=== PATIENT | female | born 1955 | race Caucasian/White ===

== ENCOUNTER 2021-05-14 12:35 | Emergency (ER) | payer OTHER, SELFPAY ==
--- NOTE | ~2021-05-14 | XR_ITS ---
EXAMINATION: XR chest 1V portable EXAM DATE: 05/14/2021 22:45 INDICATION: Shortness of breath. TECHNIQUE: Portable AP frontal chest x-ray was obtained. Comparison is made to prior examination from 09/06/2013. FINDINGS: There is moderate amount of ill-defined bilateral pneumonia or edema. No pneumothorax or pl eural effusion. Cardiomediastinal silhouette is normal. There are cholecystectomy clips. There are no osseous abnormalities identified. IMPRESSION: Moderate amount of bilateral pneumonia or edema. Reviewed, dictated and finalized at location A. 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
--- NOTE | 2021-05-14 12:41 | PC.NURSE ---
o2 sat checked at intake desk. 93%
[2021-05-14 13:39] VITALS: BP 147/69; PULSE 76; RESP 16; TEMP 36.6; O2SAT 95
[2021-05-14 19:09] VITALS: BP 123/64; PULSE 72; TEMP 36.3; O2SAT 94
[2021-05-14 22:20] VITALS: BP 131/68; PULSE 98; O2SAT 93
--- NOTE | 2021-05-14 22:40 | PC.NURSE ---
XY to room at this time.
[2021-05-14 23:25] LABS: Basophils Absolute Auto 0.1 K/mm3 (0.0-0.1); Basophils Percent Auto 0.8 % (0.2-1.2); Eosinophils Absolute Auto 0.7 K/mm3 (0-0.3); Eosinophils Percent Auto 5.8 % (0-4.4); Hematocrit 40.2 % (37.0-47.0); Hemoglobin 13.1 g/dL (12.0-15.0); Immature Granulocyte Absolute 0.05 K/mm3 (0.00-0.031); Immature Granulocyte Percent A 0.4 % (0-0.5); Lymphocytes Absolute Auto 1.28 K/mm3 (0.9-3.2); Mean Corpuscular HGB Conc 32.6 g/dl (32-36); Mean Corpuscular Hemoglobin 29.8 pg (26-34); Mean Corpuscular Volume 91.6 fl (80-100); Mean Platelet Volume 8.7 fl (7.4-10.4); Monocytes Absolute Auto 1.2 K/mm3 (0.1-0.6); Monocytes Percent Auto 10.2 % (2.6-8.5); Neutrophils Absolute Auto 8.4 K/mm3 (1.3-6.7); Neutrophils Percent Auto 71.8 % (45.5-73.1); Platelet Count Result 331 k/mm3 (150-375); Red Blood Count 4.39 M/mm3 (4.2-5.4); Red Cell Distribution Width 13.5 % (11.5-14.5); White Blood Count 11.6 K/mm3 (4.5-10.0)
[2021-05-14 23:35] LABS: Alanine Aminotransferase 25 U/L (4-35); Albumin Level 3.2 g/dL (3.5-5.1); Alkaline Phosphatase 73 U/L (38-126); Anion Gap 7 mmol/L (8-16); Aspartate Amino Transferase 36 U/L (14-36); Bilirubin,Total 0.8 mg/dL (0.2-1.3); Blood Urea Nitrogen 10 mg/dL (7-17); Calcium 8.4 mg/dL (8.4-10.2); Carbon Dioxide 23 mmol/L (22-30); Chloride 103 mmol/L (98-107); Estimated CRCL calculation 69 ml/min; Estimated Glomerular Filt Rate > 60; Glucose 110 mg/dL (65-110); Potassium 3.9 mmol/L (3.4-5.0); Sodium 133 mmol/L (137-145)
[2021-05-14 23:44] LABS: NT Pro B Type Natriuretic Pept 343 pg/mL (5-100)
[2021-05-14 23:53] VITALS: BP 116/66; PULSE 81; RESP 16; O2SAT 96
--- NOTE | 2021-05-14 23:58 | ED.GENADULT ---
HPI - General Adult General Chief complaint: Recheck/Abnormal Lab/Rx Stated complaint: low o2 sat Time Seen by Provider: 05/14/21 22:30 Source: patient Mode of arrival: ambulatory Limitations: no limitations History of Present Illness HPI narrative: 66-year-old with a history of hypertension diagnosed with Covid in February 2021 here with complaints of low SPO2 at the doctor's office this morning. Patient states that she went for follow-up regarding her chronic cough which she has been having for quite some time. At the doctor's office her SPO2 was 90%. Patient presently denies having any fever or chills has occasional nonproductive cough. She denies any shortness of breath. She states that she was sent to the ER for a chest x-ray. Onset (ago): week(s) Severity: mild Relieving factors: none Exacerbating factors: none Associated symptoms: denies other symptoms Related Data Home Medications Medication Instructions Recorded Confirmed cetirizine 10 mg capsule 10 mg PO DAILY 02/25/21 05/14/21 Allergies Allergy/AdvReac Type Severity Reaction Status Date / Time No Known Allergies Allergy Verified 05/14/21 22:47 Review of Systems Review of Systems: All systems reviewed & are unremarkable except as noted in HPI and below Constitutional: Constitutional: Reports no additional constitutional complaints Eyes: Eyes: Reports no additional eye complaints ENT: Reports system reviewed and no additional complaints, except as documented Cardiovascular: Cardiovascular: Reports no additional cardiovascular complaints Respiratory: Respiratory: Reports as per HPI Gastrointestinal: Gastrointestinal: Reports no additional gastrointestinal complaints Musculoskeletal: Musculoskeletal: Reports no additional musculoskeletal complaints Integumentary/Breasts: Skin/Breast: Reports system reviewed and no additional complaints, except as docu Neurologic: Reports system reviewed and no additional complaints, except as documented PMFSH Past Medical History Medical History Environmental allergies Essential (primary) hypertension Hyperglycemia Surgical History Surgical History H/O wisdom tooth extraction (~1974) History of cholecystectomy (~2014) Hx of section (~1982) Hx of tonsillectomy (~1963) Family History Family History Father Hypertension Mother Hypertension Family history of malignant neoplasm of breast in first degree relative, Onset Age: 70 Grandparent Carcinoma of colon Other Cerebrovascular accident Malignant neoplasm of prostate Social History Social History Smoking status: Never smoker Alcohol intake: never Substance use: never Substance use type: does not use Gender identity (if verbalized by the patient): Female Exam Narrative: GENERAL: Well-appearing, well-nourished, and in no acute distress. HEAD: Normocephalic, atraumatic. EYES: PERRLA and EOMI.. NECK: Supple. CHEST: Clear to auscultation. No respiratory distress. HEART: Regular rate and rhythm. No murmur heard. Normal peripheral pulses. ABDOMEN: Soft, nontender, nondistended, normal active bowel sounds. EXTREMITIES: Normal range of motion. No edema. SKIN: Warm, dry, no rash. NEURO: No focal deficits. Alert and oriented x3. PSYCH: Normal mood and affect. Course Course Emergency Course: Patient upon arrival her SPO2 was 95% on room air. She was placed on the monitor monitoring her SPO2 remained between 95 and 96%. She is in no distress. Informed her about her lab work and chest x-ray findings. 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 Vital Signs Vital signs: Vital Signs Temperature 36.6 C 05/14/21 13:39 Pulse Rate 76 05/14/21 13:39 Respiratory Rate 16 0
== END 2021-05-15 00:16 | disposition home or self-care (01) ==
PROVIDERS: Emergency Provider Family Medicine; PCP Family Medicine
DX: R06.02 Shortness of breath (principal); I10 Essential (primary) hypertension; Z86.16 Personal history of COVID-19
CPT/HCPCS: 36415; 71045; 80053; 83880; 85025; 99283

== ENCOUNTER 2021-06-25 01:55 | Day surgery (SDC) | payer OTHER, SELFPAY ==
[2021-06-12 11:11] VITALS: BMI 37.8
--- NOTE | 2021-06-24 15:08 | PM.HPGS ---
History of Present Illness History of Present Illness Consent: Risks, benefits, and alternatives have been discussed and questions answered. Patient agrees to proceed with procedure. Chief complaint: neoplasm screening Narrative: Ruchi Randall is a 66 year old female referred for colon cancer screening Review of Systems Review of Systems: All systems reviewed & are unremarkable except as noted in HPI and below PMFSH Past Medical History Medical History Environmental allergies Essential (primary) hypertension Hyperglycemia Surgical History Surgical History H/O wisdom tooth extraction (~1974) History of cholecystectomy (~2014) Hx of section (~1982) Hx of tonsillectomy (~1963) Family History Family History Father Hypertension Mother Hypertension Family history of malignant neoplasm of breast in first degree relative, Onset Age: 70 Grandparent Carcinoma of colon Other Cerebrovascular accident Malignant neoplasm of prostate Social History Social History Smoking status: Never smoker Alcohol intake: never Substance use: never Substance use type: does not use Living arrangements: alone Gender identity (if verbalized by the patient): Female Spiritual care concerns: No Meds Home Medications and Allergies Home Medications Medication Instructions Recorded Confirmed Type amlodipine 5 mg tablet 5 mg PO DAILY #90 tablet 02/25/21 06/12/21 Rx cetirizine 10 mg capsule 10 mg PO DAILY 02/25/21 06/12/21 History fluticasone propionate 50 2 spray INTRANASAL DAILY #16 g 02/25/21 06/12/21 Rx mcg/actuation nasal spray,suspension quinapril 20 mg tablet 20 mg PO BID #180 tablet 02/25/21 06/12/21 Rx atenolol 100 mg tablet 100 mg PO BID #180 tablet 04/08/21 06/12/21 Rx Allergies Allergy/AdvReac Type Severity Reaction Status Date / Time No Known Allergies Allergy Verified 06/25/21 09:31 Exam Const: General: alert Orientation/consciousness: patient oriented x3 Resp: Auscultation: clear to auscultation bilaterally Cardio: Rhythm: regular rhythm GI: GI Palp: Yes Soft to palpation and No Tenderness to palpation present (GI) Neuro: General: patient oriented x3 Assessment and Plan Assessment and plan (1) Colon cancer screening: Code(s): Z12.11 - Encounter for screening for malignant neoplasm of colon Status: Acute Assessment and Plan: Colonoscopy with possible biopsy or polypectomy or cautery or injection of substances.
[2021-06-25 09:20] VITALS: BP 132/67; PULSE 80; RESP 20; TEMP 37.1; O2SAT 97; BMI 36.8
[2021-06-25] MEDS: LACTATED RINGERS 1,000 ML 150 ML IV CONT (09:44)
--- NOTE | 2021-06-25 09:50 | WPDANESEPPF ---
Anes - Initial Pre Proc Eval Procedure: Operation Date: 06/25/21 11:00 Proposed Procedures p Screening Colonoscopy - Abhishek Kent MD Date/Time: 06/25/21 09:50 Surgeon: Abhishek Kent MD Pre Op Diagnosis: neoplasm screening Patient Data Age: 66 Gender: F Height: 1.6 m Weight: 94.4 kg Last Vital Signs Temp 37.1 C 06/25/21 09:20 Pulse 80 06/25/21 09:20 Resp 20 06/25/21 09:20 BP 132/67 06/25/21 09:20 Pulse Ox 97 06/25/21 09:20 Allergies Allergy/AdvReac Type Severity Reaction Status Date / Time No Known Allergies Allergy Verified 06/25/21 09:31 Home Medications Medication Instructions Recorded Confirmed Type amlodipine 5 mg tablet 5 mg PO DAILY #90 tablet 02/25/21 06/12/21 Rx cetirizine 10 mg capsule 10 mg PO DAILY 02/25/21 06/12/21 History fluticasone propionate 50 2 spray INTRANASAL DAILY #16 g 02/25/21 06/12/21 Rx mcg/actuation nasal spray,suspension quinapril 20 mg tablet 20 mg PO BID #180 tablet 02/25/21 06/12/21 Rx atenolol 100 mg tablet 100 mg PO BID #180 tablet 04/08/21 06/12/21 Rx Patient hx anesthesia problems: none Family hx anesthesia problems: none Results Review: All pre-operative results and documents have been reviewed as part of the pre-operative evaluation. ON LICENSE OF [facility] Past Medical History Medical History (Updated 06/25/21 @ 09:50 by Joseph Florez MD) Environmental allergies Essential (primary) hypertension Hyperglycemia Obesity Surgical History Surgical History H/O wisdom tooth extraction (~1974) History of cholecystectomy (~2014) Hx of section (~1982) Hx of tonsillectomy (~1963) Family History Family History Father Hypertension Mother Hypertension Family history of malignant neoplasm of breast in first degree relative, Onset Age: 70 Grandparent Carcinoma of colon Other Cerebrovascular accident Malignant neoplasm of prostate Social History Social History Smoking status: Never smoker Alcohol intake: never Substance use: never Substance use type: does not use Living arrangements: alone Gender identity (if verbalized by the patient): Female Spiritual care concerns: No Anes - Eval Final PreProcedure Day of Procedure 06/25/21 09:50 Patient weight: obese Heart: regular rate and rhythm Lungs: clear to auscultation Airway: Mallampati scale class II Neurological: alert and oriented Last oral intake: >/= 8 hours ASA classification: II Emergent: no Anesthetic plan: proceed Anesthesia type and monitoring: general GIVS and standard monitoring Results Review: All pre-operative results and documents have been reviewed as part of the pre-operative evaluation. Informed Consent: The patient's anesthetic plan and its attendant risks and benefits were discussed with the patient/family/POA. Questions were solicited and answers provided to the satisfaction of the patient/family/POA.
[2021-06-25 10:53] VITALS: BP 91/54; PULSE 72; RESP 30; O2SAT 93
[2021-06-25 11:03] VITALS: BP 96/55; PULSE 71; RESP 29; O2SAT 95
[2021-06-25 11:13] VITALS: BP 108/64; PULSE 71; RESP 23; O2SAT 98
== END 2021-06-25 11:34 | disposition home or self-care (01) ==
PROVIDERS: PCP Family Medicine; Visit Provider Internal Medicine Gastroenterology
PROC: 0DJD8ZZ Inspection of Lower Intestinal Tract, Via Natural or Artificial Opening Endoscopic (ICD-10-PCS; CPT 45378; principal; 2021-06-25 11:00)
DX: Z12.11 Encounter for screening for malignant neoplasm of colon (principal); K57.30 Diverticulosis of large intestine without perforation or abscess without bleeding; D12.3 Benign neoplasm of transverse colon; D12.2 Benign neoplasm of ascending colon; I10 Essential (primary) hypertension; E66.9 Obesity, unspecified; Z68.36 Body mass index [BMI] 36.0-36.9, adult
CPT/HCPCS: 45385; 45381; 88305; J2370; J2704; J7120

== ENCOUNTER 2021-06-30 12:15 | Outpatient (CLI) | payer OTHER, SELFPAY ==
--- NOTE | 2021-06-30 16:44 | WPDPFTINT ---
PFT Procedure Performed PFT Procedure Performed Spirometry with Pre/Post Bronchodilator Plethysmography (Lung Vol) Diffusing Cap (DLCO) Flow Vol Loop PFT Interpretation Lung volumes were measured with the body plethysmography method. The diminished expiratory reserve volume is related to obesity. The remainder of the lung volumes are unremarkable. Spirometry showed diminished expiratory flow rates and a normal FEV1 to FVC ratio 73%. Following administration of a bronchodilator there was no significant increase in expiratory flow rates. Lung diffusion capacity is severely reduced at 38% of predicted. This restrictive pattern on spirometry in the face of a normal total lung capacity is indicative of a nonspecific pattern. Impression: Nonspecific pattern. Severely reduced lung diffusion capacity.
== END 2021-06-30 12:16 | disposition home or self-care (01) ==
LOC: ANHPFT 12:17
PROVIDERS: PCP Family Medicine; Visit Provider Family Medicine
DX: R09.02 Hypoxemia (principal); R94.2 Abnormal results of pulmonary function studies
CPT/HCPCS: 94060; 94726; 94729

== ENCOUNTER 2022-03-03 10:52 | Outpatient (CLI) | payer OTHER, SELFPAY ==
[2022-03-03 19:35] LABS: Basophils Absolute Auto 0.2 K/mm3 (0.0-0.1); Basophils Percent Auto 1.1 % (0.2-1.2); Eosinophils Absolute Auto 1.2 K/mm3 (0-0.3); Eosinophils Percent Auto 8.8 % (0-4.4); Hematocrit 38.8 % (37.0-47.0); Hemoglobin 12.9 g/dL (12.0-15.0); Immature Granulocyte Absolute 0.05 K/mm3 (0.00-0.031); Immature Granulocyte Percent A 0.4 % (0-0.5); Lymphocytes Percent Auto 9.8 % (18.3-44.2); Mean Corpuscular HGB Conc 33.2 g/dl (32-36); Mean Corpuscular Hemoglobin 30.6 pg (26-34); Mean Corpuscular Volume 92.2 fl (80-100); Mean Platelet Volume 10.9 fl (7.4-10.4); Monocytes Absolute Auto 0.8 K/mm3 (0.1-0.6); Monocytes Percent Auto 6.3 % (2.6-8.5); Neutrophils Absolute Auto 9.7 K/mm3 (1.3-6.7); Neutrophils Percent Auto 73.6 % (45.5-73.1); Platelet Count Result 253 k/mm3 (150-375); Red Blood Count 4.21 M/mm3 (4.2-5.4); Red Cell Distribution Width 13.2 % (11.5-14.5); White Blood Count 13.2 K/mm3 (4.5-10.0)
[2022-03-03 19:59] LABS: Alanine Aminotransferase 26 U/L (6-35); Alkaline Phosphatase 83 U/L (38-126); Anion Gap 11 mmol/L (8-16); Aspartate Amino Transferase 34 U/L (14-36); Bilirubin,Total 0.5 mg/dL (0.2-1.3); Blood Urea Nitrogen 14 mg/dL (7-17); Carbon Dioxide 22 mmol/L (22-30); Chloride 106 mmol/L (98-107); Cholesterol 174 mg/dL (0-200); Estimated Glomerular Filt Rate > 60; Glucose 143 mg/dL (65-110); HDL Direct 28 mg/dL; Potassium 4.1 mmol/L (3.4-5.0); Sodium 139 mmol/L (137-145); Triglycerides 207 mg/dL (<150)
[2022-03-03 20:03] LABS: Erythrocyte Sedimentation Rate 45 mm/hr (0-20)
[2022-03-03 20:10] LABS: LDL Cholesterol Direct 88 mg/dL
[2022-03-03 20:17] LABS: Rheumatoid Factor 14.9 IU/ML (<12)
[2022-03-03 22:02] LABS: Vitamin D 25 Hydroxy < 12.8 ng/mL
[2022-03-04 05:39] LABS: Free T4 Free Thyroxine Reflex 1.34 ng/dL (0.78-2.19)
[2022-03-04 07:21] LABS: Total Triiodothyronine (T3) 1.32 NG/ML (0.97-1.69)
[2022-03-07 15:47] LABS: Anti Nuclear Antibody Pattern Nuclear, Nucleolar
[2022-03-08 13:30] LABS: Anti Cyclic Citrullinated Pept <16 Units (<20)
== END 2022-03-03 10:53 | disposition home or self-care (01) ==
LOC: ANHGOSHLAB 10:53
PROVIDERS: PCP Family Medicine; Visit Provider Family Medicine
DX: Z00.00 Encounter for general adult medical examination without abnormal findings (principal); I10 Essential (primary) hypertension; E78.5 Hyperlipidemia, unspecified; E53.8 Deficiency of other specified B group vitamins; M25.461 Effusion, right knee; M25.462 Effusion, left knee; E55.9 Vitamin D deficiency, unspecified; R73.9 Hyperglycemia, unspecified
CPT/HCPCS: 36415; 80053; 80061; 82306; 82607; 83036; 84439; 84443; 84480; 85025; 85652; 86038; 86039; 86200; 86430

== ENCOUNTER 2022-09-17 12:33 | Outpatient (CLI) | payer MEDICARE, SELFPAY ==
[2022-09-17 19:25] LABS: Basophils Absolute Auto 0.1 K/mm3 (0.0-0.1); Basophils Percent Auto 0.9 % (0.2-1.2); Eosinophils Absolute Auto 1.4 K/mm3 (0-0.3); Eosinophils Percent Auto 11.4 % (0-4.4); Hematocrit 39.1 % (37.0-47.0); Hemoglobin 12.4 g/dL (12.0-15.0); Immature Granulocyte Absolute 0.05 K/mm3 (0.00-0.031); Immature Granulocyte Percent A 0.4 % (0-0.5); Lymphocytes Absolute Auto 1.55 K/mm3 (0.9-3.2); Lymphocytes Percent Auto 12.2 % (18.3-44.2); Mean Corpuscular HGB Conc 31.7 g/dl (32-36); Mean Corpuscular Hemoglobin 29.7 pg (26-34); Mean Corpuscular Volume 93.8 fl (80-100); Mean Platelet Volume 9.5 fl (7.4-10.4); Monocytes Percent Auto 7.5 % (2.6-8.5); Neutrophils Absolute Auto 8.6 K/mm3 (1.3-6.7); Neutrophils Percent Auto 67.6 % (45.5-73.1); Platelet Count Result 434 k/mm3 (150-375); Red Blood Count 4.17 M/mm3 (4.2-5.4); Red Cell Distribution Width 12.8 % (11.5-14.5); White Blood Count 12.7 K/mm3 (4.5-10.0)
[2022-09-17 19:41] LABS: Alanine Aminotransferase 30 U/L (6-35); Albumin Level 3.7 g/dL (3.5-5.1); Alkaline Phosphatase 79 U/L (38-126); Anion Gap 3 mmol/L (8-16); Aspartate Amino Transferase 83 U/L (14-36); Bilirubin,Total 0.5 mg/dL (0.2-1.3); Blood Urea Nitrogen 18 mg/dL (7-17); Calcium 8.6 mg/dL (8.4-10.2); Carbon Dioxide 29 mmol/L (22-30); Chloride 104 mmol/L (98-107); Cholesterol 160 mg/dL (0-200); Estimated Glomerular Filt Rate > 60; Glucose 116 mg/dL (65-110); HDL Direct 22 mg/dL; Potassium 4.4 mmol/L (3.4-5.0); Sodium 136 mmol/L (137-145); Triglycerides 223 mg/dL (<150)
[2022-09-17 19:51] LABS: LDL Cholesterol Direct 82 mg/dL
[2022-09-17 19:56] LABS: Vitamin D 25 Hydroxy 55.6 ng/mL
[2022-09-18 02:14] LABS: Free T4 Free Thyroxine Reflex 1.18 ng/dL (0.78-2.19)
[2022-09-18 02:59] LABS: Total Triiodothyronine (T3) 1.36 NG/ML (0.97-1.69)
== END 2022-09-17 12:34 | disposition home or self-care (01) ==
PROVIDERS: PCP Family Medicine; Visit Provider Family Medicine
DX: E53.8 Deficiency of other specified B group vitamins (principal); I10 Essential (primary) hypertension; R73.9 Hyperglycemia, unspecified; E78.5 Hyperlipidemia, unspecified; E55.9 Vitamin D deficiency, unspecified
CPT/HCPCS: 36415; 80053; 80061; 82306; 82607; 83036; 84439; 84443; 84480; 85025

== ENCOUNTER 2023-04-13 10:12 | Emergency (ER) | payer MEDICARE, SELFPAY ==
[2023-04-13 10:20] VITALS: BP 153/74; PULSE 66; RESP 16; TEMP 37; O2SAT 96
--- NOTE | 2023-04-13 10:52 | ED.EAR ---
HPI - Ear Problem General Chief complaint: Ear Stated complaint: Swollen Face Time Seen by Provider: 04/13/23 10:57 Source: patient and RN notes reviewed Mode of arrival: ambulatory Limitations: no limitations History of Present Illness HPI Narrative: 68-year-old female presents with concern for intermittent in swelling below her right ear for the last couple of weeks. Reports she noticed it was slightly tender last night. She denies any redness, warmth, significant swelling. She denies any fever, aches, chills, sweats. Denies trouble swallowing, sore throat. Complaint: other (Gland swelling) Related Data Home Medications Medication Instructions Recorded Confirmed cetirizine 10 mg capsule (Zyrtec) 10 mg PO DAILY 02/25/21 04/13/23 Allergies Allergy/AdvReac Type Severity Reaction Status Date / Time No Known Allergies Allergy Verified 09/17/22 11:09 Review of Systems Review of Systems: CONSTITUTIONAL: Denies malaise, chills, sweats, or fever. EYES: Denies visual changes, redness, or discharge. ENT: Denies rhinorrhea, congestion, sinus pain, and sore throat. Reports right ear fullness. Reports intermittent swelling below the right ears. Reports tenderness in that area today. CARDIOVASCULAR: Denies chest pain, palpitations, or edema. RESPIRATORY: Denies cough. Denies dyspnea. GASTROINTESTINAL: Denies abdominal pain, nausea, vomiting, diarrhea SKIN: Denies rash or itching. MUSCULOSKELETAL: Denies myalgia. NEUROLOGIC: Denies headache. All systems reviewed & are unremarkable except as noted in HPI and below PMFSH Past Medical History Medical History (Updated 04/13/23 @ 11:04 by Denise Miller NP) Decreased diffusion capacity of lung Environmental allergies Essential (primary) hypertension Obesity Surgical History Surgical History H/O wisdom tooth extraction (~1974) History of cholecystectomy (~2014) Hx of section (~1982) Hx of tonsillectomy (~1963) Family History Family History Father Hypertension Mother Hypertension Family history of malignant neoplasm of breast in first degree relative, Onset Age: 70 Grandparent Carcinoma of colon Other Cerebrovascular accident Malignant neoplasm of prostate Social History Social History Smoking status: Never smoker Alcohol intake: never Substance use: never Substance use type: does not use Lack of Transportation: No Lack of Food: Never True Current Housing: I Have Housing Concerned About Future Housing: No Difficulty Paying Gas/Electric Bills: No Difficulty Paying for Meds: No Currently Unemployed: No Education: High School Diploma/GED Difficulty w/ Childcare or Family Care: No Living arrangements: alone Gender identity (if verbalized by the patient): Female Spiritual care concerns: No Comments At time of signature, agree with nursing past medical, surgical, social and family history. There is no relevant family history pertinent to the presenting complaint Exam Narrative: GENERAL: Well-appearing, well-nourished, and in no acute distress. HEAD: Normocephalic EYES: PERRLA, conjunctivae clear ENT: Nares clear, clear discharge. Mucous membranes moist. TM pearly martinez with sharp light reflex bilaterally; no tragal tenderness. Oropharynx not erythematous without lesions. Tonsils not enlarged and without exudate, no drooling, no hoarseness, no trismus, uvula midline. No swelling, erythema, warmth noted to the pre or post or auricular area NECK: Supple. No lymphadenopathy CHEST: Clear to auscultation, breath sounds equal. No wheezing, rhonchi, rales, or stridor. No respiratory distress, speaks in full sentences. HEART: Regular rate and rhythm. No murmur heard. SKIN: Warm, dry, no rash. NEURO: Alert and oriented x3. PSYCH: Normal mood and
== END 2023-04-13 11:12 | disposition home or self-care (01) ==
PROVIDERS: Emergency Provider Nurse Practitioner; PCP Family Medicine
DX: K11.8 Other diseases of salivary glands (principal); I10 Essential (primary) hypertension; E66.9 Obesity, unspecified; Z68.34 Body mass index [BMI] 34.0-34.9, adult
CPT/HCPCS: 99211; G0463

== ENCOUNTER 2023-11-13 11:15 | Emergency (ER) | payer MEDICARE, SELFPAY ==
[2023-11-13 11:28] VITALS: BP 135/69; PULSE 79; RESP 20; TEMP 37.1; O2SAT 96
--- NOTE | 2023-11-13 12:01 | ED.GENADULT ---
HPI - General Adult General Chief complaint: Unspecified Stated complaint: swollen gland Time Seen by Provider: 11/13/23 12:01 Source: patient Mode of arrival: ambulatory Limitations: no limitations History of Present Illness HPI narrative: 68 yo F presents with swelling and pain to parotid gland for 4 days. hx of similar symptoms. resolved with abx. erythema and warmth started today. afebrile. All systems reviewed and negative except as noted above. Related Data Home Medications Medication Instructions Recorded Confirmed cetirizine 10 mg capsule (Zyrtec) 10 mg PO DAILY 02/25/21 11/13/23 Allergies Allergy/AdvReac Type Severity Reaction Status Date / Time No Known Allergies Allergy Verified 11/13/23 11:19 Review of Systems Review of Systems: CONSTITUTIONAL: Denies fever, chills, or sweats. EYES: Denies visual changes, redness, or discharge. ENT: Denies rhinorrhea, congestion, sore throat, or otalgia. CARDIOVASCULAR: Denies chest pain, palpitations, or edema. RESPIRATORY: Denies cough or dyspnea. GASTROINTESTINAL: Denies abdominal pain, nausea, vomiting, or diarrhea. GENITOURINARY: Denies dysuria or hematuria. SKIN: Denies rash or itching. Reports swelling to parotid gland MUSCULOSKELETAL: Denies back pain, joint pain, or myalgia. NEUROLOGIC: Denies headache, numbness, or weakness. PSYCHIATRIC: Denies anxiety or depression. All other systems reviewed are negative, except as documented in HPI. [facility] Past Medical History Medical History (Updated 11/13/23 @ 12:07 by Sejal Kwok NP) Decreased diffusion capacity of lung Environmental allergies Essential (primary) hypertension Obesity Surgical History Surgical History H/O wisdom tooth extraction (~1974) History of cholecystectomy (~2014) Hx of section (~1982) Hx of tonsillectomy (~1963) Family History Family History Father Hypertension Mother Hypertension Family history of malignant neoplasm of breast in first degree relative, Onset Age: 70 Grandparent Carcinoma of colon Other Cerebrovascular accident Malignant neoplasm of prostate Social History Social History Smoking status: Never smoker Alcohol intake: never Substance use: never Substance use type: does not use Lack of Transportation: No Lack of Food: Never True Current Housing: I Have Housing Concerned About Future Housing: No Difficulty Paying Gas/Electric Bills: No Difficulty Paying for Meds: No Currently Unemployed: No Education: High School Diploma/GED Difficulty w/ Childcare or Family Care: No Living arrangements: alone Gender identity (if verbalized by the patient): Female Spiritual care concerns: No Comments At time of signature, agree with nursing past medical, surgical, social and family history. There is no relevant family history pertinent to the presenting complaint. Exam Narrative: GENERAL: This is a well-nourished, well-developed patient, in no apparent distress. HEAD: normocephalic, atraumatic. EYES: PERRL. Sclera clear/white. Vision is grossly intact. EARS: External ears normal NOSE: External nose normal NECK: Neck supple, non-tender without lymphadenopathy, masses or thyromegaly. enlarged parotid gland with erythema, warmth. no fluctuance. CARDIOVASCULAR: Regular rate and rhythm without murmurs, gallops, or rubs. RESPIRATORY: Clear to auscultation. Breath sounds equal bilaterally. No wheezes, rales, or rhonchi. SKIN: warm, Dry, intact with no suspicious lesions or rash, good texture and turgor. NEURO: awake, alert, and oriented to person, place and time. There were no obvious focal neurologic abnormalities. EXTREMITIES: No joint tenderness, effusion, or edema noted. Course Course Level of Care: Express Care Visit Vital
== END 2023-11-13 12:15 | disposition home or self-care (01) ==
PROVIDERS: Emergency Provider Nurse Practitioner Family; PCP Family Medicine
DX: K11.21 Acute sialoadenitis (principal); I10 Essential (primary) hypertension; E66.9 Obesity, unspecified; Z68.35 Body mass index [BMI] 35.0-35.9, adult
CPT/HCPCS: 99213; G0463

== ENCOUNTER 2023-12-03 09:23 | Outpatient (CLI) | payer MEDICARE, SELFPAY ==
--- NOTE | ~2023-12-03 | US_ITS ---
Right paratracheal gland area ULTRASOUND Ordering provider: Shayne Weiner APRN History: . Parotitis . Comparison: None. FINDINGS/impression: Multiple lymph nodes with hypoechoic areas measuring 1.5 x 0.6 x 1.4 cm, 1.7 x 0 .8 x 1.3 cm, 1 x 0.5 x 0.8 cm and 1.2 x 1.2 x 1.3 cm which are most likely infected lymph nodes. Righ t paratracheal area measures 4.4 x 1.5 cm. Follow-up and clinical correlation advised. Left parotid gland area lymph nodes are also noted measuring 1.2 x 1.1 x 1.1 cm which is also most li wayne infected. Follow-up and clinical correlation advised. Left submandibular lymph node is seen measuring 1.7 x 0.9 x 1.5 cm. Reviewed, dictated and finalized at location A.
== END 2023-12-03 09:24 | disposition home or self-care (01) ==
LOC: ANHIMG 09:25
PROVIDERS: PCP Family Medicine; Visit Provider Student in an Organized Health Care Education/Training Program
DX: K11.21 Acute sialoadenitis (principal)
CPT/HCPCS: 76536

== ENCOUNTER 2023-12-24 13:59 | Outpatient (CLI) | payer MEDICARE, SELFPAY ==
[2023-12-24 18:31] LABS: Alanine Aminotransferase 16 U/L (6-35); Alkaline Phosphatase 75 U/L (38-126); Anion Gap 11 mmol/L (4-12); Aspartate Amino Transferase 28 U/L (14-36); Bilirubin,Total 0.5 mg/dL (0.2-1.3); Blood Urea Nitrogen 11 mg/dL (7-17); Calcium 9.4 mg/dL (8.4-10.2); Carbon Dioxide 25 mmol/L (22-30); Chloride 103 mmol/L (98-107); Cholesterol 185 mg/dL (0-200); Estimated Glomerular Filt Rate 55; Glucose 125 mg/dL (65-110); HDL Direct 34 mg/dL; Potassium 4.3 mmol/L (3.4-5.0); Sodium 139 mmol/L (137-145); Triglycerides 235 mg/dL (<150)
[2023-12-24 18:46] LABS: Basophils Absolute Auto 0.2 K/mm3 (0.0-0.1); Basophils Percent Auto 1.4 % (0.2-1.2); Eosinophils Absolute Auto 1.4 K/mm3 (0-0.3); Eosinophils Percent Auto 11.3 % (0-4.4); Hematocrit 41.2 % (37.0-47.0); Hemoglobin 13.7 g/dL (12.0-15.0); Immature Granulocyte Absolute 0.04 K/mm3 (0.00-0.031); Immature Granulocyte Percent A 0.3 % (0-0.5); LDL Cholesterol Direct 103 mg/dL; Lymphocytes Absolute Auto 2.39 K/mm3 (0.9-3.2); Lymphocytes Percent Auto 19.4 % (18.3-44.2); Mean Corpuscular HGB Conc 33.3 g/dl (32-36); Mean Corpuscular Volume 93.2 fl (80-100); Mean Platelet Volume 9.6 fl (7.4-10.4); Monocytes Absolute Auto 0.9 K/mm3 (0.1-0.6); Monocytes Percent Auto 7.3 % (2.6-8.5); Neutrophils Absolute Auto 7.5 K/mm3 (1.3-6.7); Neutrophils Percent Auto 60.3 % (45.5-73.1); Platelet Count Result 372 k/mm3 (150-375); Red Blood Count 4.42 M/mm3 (4.2-5.4); Red Cell Distribution Width 12.1 % (11.5-14.5); White Blood Count 12.4 K/mm3 (4.5-10.0)
[2023-12-24 19:04] LABS: Vitamin D 25 Hydroxy 25.4 ng/mL
== END 2023-12-24 14:00 | disposition home or self-care (01) ==
LOC: ANHGOSHLAB 14:01
PROVIDERS: PCP Family Medicine; Visit Provider Nurse Practitioner Family
DX: E55.9 Vitamin D deficiency, unspecified (principal); I10 Essential (primary) hypertension
CPT/HCPCS: 36415; 80053; 80061; 82306; 84443; 85025

== ENCOUNTER 2024-11-08 10:08 | Outpatient (CLI) | payer MEDICARE, SELFPAY ==
[2024-11-08 12:29] LABS: Hematocrit 41.4 % (37.0-47.0); Hemoglobin 13.6 g/dL (12.0-15.0); Immature Granulocyte Percent A 0.5 % (0-0.5); Lymphocytes Absolute Auto 1.59 K/mm3 (0.9-3.2); Mean Corpuscular HGB Conc 32.9 g/dl (32-36); Mean Corpuscular Hemoglobin 30.1 pg (26-34); Mean Corpuscular Volume 91.6 fl (80-100); Nucleated Red Blood Cells Absolute Auto 0.000 K/mm3 (0.0-0.012); Nucleated Red Blood Cells Perc 0.0 % (0.0-0.2); Platelet Count Result 372 k/mm3 (150-375); Red Blood Count 4.52 M/mm3 (4.2-5.4); White Blood Count 13.1 K/mm3 (4.5-10.0)
[2024-11-08 13:01] LABS: Alanine Aminotransferase 21 U/L (6-35); Albumin Level 4.2 g/dL (3.5-5.1); Alkaline Phosphatase 77 U/L (38-126); Anion Gap 10 mmol/L (4-12); Aspartate Amino Transferase 46 U/L (14-36); Bilirubin,Total 0.6 mg/dL (0.2-1.3); Blood Urea Nitrogen 15 mg/dL (7-17); Calcium 9.8 mg/dL (8.4-10.2); Carbon Dioxide 22 mmol/L (22-30); Chloride 106 mmol/L (98-107); Cholesterol 177 mg/dL (0-200); Estimated Glomerular Filt Rate 45; Glucose 150 mg/dL (65-110); HDL Direct 30 mg/dL; Potassium 4.6 mmol/L (3.4-5.0); Sodium 138 mmol/L (137-145); Total Protein 8.0 g/dL (6.3-8.2); Triglycerides 264 mg/dL (<150)
[2024-11-08 13:49] LABS: Vitamin B12. 233.0 pg/mL (239-931)
[2024-11-08 14:23] LABS: Thyroid Stimulating Hormone Reflex 4.200 uIU/mL (0.465-4.68)
[2024-11-08 14:58] LABS: Hemoglobin A1C. 4.9 % (<5.7)
[2024-11-08 15:29] LABS: Free T4 Free Thyroxine Reflex 1.16 ng/dL (0.78-2.19)
[2024-11-08 16:43] LABS: Total Triiodothyronine (T3) 1.27 NG/ML (0.82-1.58)
== END 2024-11-08 10:09 | disposition home or self-care (01) ==
LOC: ANHGOSHLAB 10:09
PROVIDERS: PCP Family Medicine; Visit Provider Family Medicine
DX: R06.09 Other forms of dyspnea (principal); Z00.00 Encounter for general adult medical examination without abnormal findings; R73.9 Hyperglycemia, unspecified; E53.8 Deficiency of other specified B group vitamins; E55.9 Vitamin D deficiency, unspecified; I10 Essential (primary) hypertension; E78.5 Hyperlipidemia, unspecified
CPT/HCPCS: 36415; 80053; 80061; 82306; 82607; 83036; 84439; 84443; 84480; 85025